=== PATIENT | female | born 1975 | race Caucasian/White ===

== ENCOUNTER 2023-05-20 19:56 | Observation (INO) ==
[2023-05-20 21:58] LABS: Anion Gap 7 (3-11); BUN Creatinine Ratio 15.2 (10-20); Blood Urea Nitrogen 12 mg/dl (6-23); Carbon Dioxide 26 mmol/L (21-32); Chloride 104 mmol/L (98-107); Est GFR (African American) 103.3 ml/min; Est GFR (Non-African American) 89.1 ml/min; Glucose 89 mg/dl (70-99(Fasting)); Potassium 3.5 mmol/L (3.5-5.1); Sodium 137 mmol/L (136-145)
[2023-05-20 22:20] LABS: Hematocrit (blood only) 22.9 % (37.0-47.0); Hemoglobin 6.4 g/dl (12.0-16.0); Mean Corpuscular Hemoglobin 19.8 pg (25.0-34.0); Mean Corpuscular Hgb Conc 27.9 g/dL (32.0-36.0); Mean Corpuscular Volume 70.7 fL (80.0-100.0); Platelet Count 318 K/uL (130-400); RDW Standard Deviation 43.4 fL (36.4-46.3); Red Blood Count 3.24 M/uL (4.20-5.40); White Blood Count 6.39 K/ul (4.8-10.8)
[2023-05-20] MEDS ORDERED: SODIUM CHLORIDE 0.9% 250 ML IV PRN (22:25)
[2023-05-20] MEDS ORDERED: SODIUM CHLORIDE 0.9% 1000ML 1,000 ML IV ONE (22:33)
--- NOTE | 2023-05-20 22:36 | Emergency Department Note ---
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 No history of blo od transfusions in the past. Patient denies chest pain, fevers, bleeding disorders. She states she is healthy. Home Medications Medication Instructions Recorded Confirmed Type sumatriptan succinate 50 mg tablet 50 mg PO UD PRN migraine headache 05/20/23 05/20/23 History Allergies Allergy/AdvReac Type Severity Reaction Status Date / Time No Known Allergies Allergy Verified 05/20/23 15:10 Past Med/Surg History Surgical History History of wisdom tooth extraction Family History Father Prostate cancer Denies family history of Ovarian cancer Myocardial infarction Breast cancer Colorectal cancer Social History Smoking Status: Never smoker Second Hand Exposure: No; Do You Dip or Chew Tobacco: No; Hx Alcohol Use: No Hx Substance Use: No Preferred Language: Spanish Communication Ability: Effective Visual Impairment: No Limitations Hearing Ability: Normal 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 Beliefs That Will Affect Care: None marital status: Current Living Situation: Family current occupational status: employed 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 How many Children do You have: 2 Feels Safe at Home: Yes Safety Concerns: Feels Safe At This Time Childhood Exposure to Second-Hand Smoke: No caffeine: Yes during the past year weight has: increased > 10 lbs Dental Care, Regularly: Yes Physical Activity Frequency: Does not Exercise Seatbelt Use: always Sunscreen Use: Yes Review of Systems A total of 10 systems reviewed and were otherwise negative Physical Exam Vital Signs Vital Signs - 24 hr 05/20/23 20:14 05/20/23 22:40 05/20/23 22:43 Temperature 36.5 C Temperature Source Temporal Artery Scan Pulse Rate 85 93 H Pulse Rate [Apical] 93 H Pulse Rhythm [Apical] Regular Pulse Strength [Apical] Normal Respiratory Rate 18 20 Respiratory Effort / Characteristics Non-Labored Non-Labored Respiratory Depth Normal Normal Respiratory Pattern Regular Blood Pressure 156/92 H Blood Pressure [Left Arm] 164/97 H Blood Pressure Mean 113 Blood Pressure Mean [Left Arm] 119 Blood Pressure Position [Left Arm] Sitting Pulse Oximetry 99 100 Oxygen Delivery Method Room Air Room Air Sepsis Recent Fever Within 48 Hours No Sepsis New/Unexplained Change in Mental Status No Sepsis Action Taken by Nursing No Action Required VITALS: Vitals are noted on the nurse's note and reviewed by myself. Vital signs stable. GENERAL: Pleasant patient, in no acute distress, nondiaphoretic, well-developed well-nourished. SKIN: The skin was without rashes, erythema, edema, or bruising. There is no tenting of the skin. Capillary reflex less than 2 seconds. HEAD: Normocephalic atraumatic. EARS: External auditory canals clear, EYES: Pupils equal round and reactive to light and accommodation. Conjunctivae without injection, sclerae without icterus. Extraocular movements intact. NOSE: Patent, turbinates without inflammation or discharge. MOUTH: Mucous membranes moist. Pharynx without erythema or exudate. Uvula midline. Airway patent. Tongue does not deviate. NECK: Supple without nuchal rigidity. No lymphadenopathy. No thyromegaly. Cervical spine is nontender. No JVD. HEART: Regular rate and rhythm LUNGS: Clear to auscultation bilaterally without wheezes, rales or rhonchi. No retractions or accessory muscle use. ABDOMEN: Positive bowel sounds x 4. Normal tympanic percussion. Soft, nontender, without masses or organomegaly. Powell sign negative. No guarding or rebound tenderness. No CVA tenderness MUSCULOSKELETAL: No muscle atrophy, erythema, or edema noted. NEURO: Patient was alert and oriented to person place and time. Normal sensation to light and sharp touch. No focal neurological deficits. Course Administered Medications Discontinued Medications Sodium Chloride (Nss 1000ml) 1,000 mls @ 999 mls/hr IV .Q1H1M ONE Stop: 05/20/23 23:33 Last Infusion: 05/21/23 00:00 Dose: 0 mls/hr Documented By: Admin: 05/20/23 22:44 Dose: 999 mls/hr Documented By: KIRSTIN Critical Care Time Critical Care Time: Yes Total Critical Care Time: 35 I have personally spent 35 minutes of critical care time in the direct management of this patient. This includes bedside care, interpretation of diagnostic studies, and testing, discussion with consultants, patient, and family members, and other required patient management activities. This 35 minutes is in excess of all separately billable procedures. Medical Decision Making Medical Records Attestation: I reviewed the patient's medical records. Home Medications Current Medication List: was personally reviewed by me Laboratory Data Attestation: I reviewed the patient's lab results. 05/20/23 21:02 05/20/23 21:02 Lab Results 05/20/23 05/20/23 05/20/23 Range/Units 21:02 21:02 21:02 WBC 6.39 (4.8-10.8) K/ul RBC 3.24 L (4.20-5.40) M/uL Hgb 6.4 L* (12.0-16.0) g/dl Hct 22.9 L (37.0-47.0) % MCV 70.7 L (80.0-100.0) fL MCH 19.8 L (25.0-34.0) pg MCHC 27.9 L (32.0-36.0) g/dL RDW Std Deviation 43.4 (36.4-46.3) fL RDW Coeff of Rosario 17.0 H (11.5-14.5) % Plt Count 318 (130-400) K/uL MPV 10.0 (9.4-12.4) fL Sodium 137 (136-145) mmol/L Potassium 3.5 (3.5-5.1) mmol/L Chloride 104 (98-107) mmol/L Carbon Dioxide 26 (21-32) mmol/L Anion Gap 7 (3-11) BUN 12 (6-23) mg/dl Creatinine 0.79 (0.6-1.2) mg/dl Est Cr Clr Drug Dosing Not Reportable Est GFR ( Amer) 103.3 ml/min Est GFR (Non-Af Amer) 89.1 ml/min BUN/Creatinine Ratio 15.2 (10-20) Glucose 89 (70-99(Fasting)) mg/dl Calcium 10.0 (8.6-10.3) mg/dl Magnesium 1.9 (1.7-2.4) mg/dl Troponin I High Sens < 2.3 (0-14) pg/ml HCG, Qual Negative (Negative) Blood Type Blood Type Recheck Antibody Screen Crossmatch 05/20/23 05/20/23 Range/Units 21:03 22:50 WBC (4.8-10.8) K/ul RBC (4.20-5.40) M/uL Hgb (12.0-16.0) g/dl Hct (37.0-47.0) % MCV (80.0-100.0) fL MCH (25.0-34.0) pg MCHC (32.0-36.0) g/dL RDW Std Deviation (36.4-46.3) fL RDW Coeff of Rosario (11.5-14.5) % Plt Count (130-400) K/uL MPV (9.4-12.4) fL Sodium (136-145) mmol/L Potassium (3.5-5.1) mmol/L Chloride (98-107) mmol/L Carbon Dioxide (21-32) mmol/L Anion Gap (3-11) BUN (6-23) mg/dl Creatinine (0.6-1.2) mg/dl Est Cr Clr Drug Dosing Est GFR ( Amer) ml/min Est GFR (Non-Af Amer) ml/min BUN/Creatinine Ratio (10-20) Glucose (70-99(Fasting)) mg/dl Calcium (8.6-10.3) mg/dl Magnesium (1.7-2.4) mg/dl Troponin I High Sens (0-14) pg/ml HCG, Qual (Negative) Blood Type O Positive Blood Type Recheck O Positive Antibody Screen NEGATIVE Crossmatch See Detail Imaging Data Attestation: I personally reviewed and interpreted this imaging study as follows: Radiologist's Impression: Pelvis Ultrasound 05/20/23 22:56 Exam(s): US PELVIS EXAM: US Pelvis Transabdominal, Complete CLINICAL HISTORY: Reason for exam: heavy vaginal bleeding causing anemia. TECHNIQUE: Real-time complete transabdominal pelvic ultrasound with image documentation. COMPARISON: None. FINDINGS: Uterus/cervix: There are 2 hypoechoic lesions identified within the uterus one located posterior to the level of the fundus measuring 2.7 x 2. 7 x 3.0 cm and second surrounding the left uterine myometrium measuring 3. 1 x 1.4 x 1.2 cm. The endometrium measures 8.6 mm . The uterus measures 9.3 x 4.6 x 5.3 cm . Nonspecific nabothian cyst. Right ovary: The right ovary measures 4.2 x 3.6 x 3.6 cm. Round anechoic structure within the right ovary measuring 4.5 x 3.7 x 3.7 cm. Normal blood flow. Left ovary: The left ovary measures 2.4 x 1.0 x 2.7 cm. Within the left ovary there is an ovoid anechoic structure consistent with a simple cyst measuring 2.5 x 0.9 x 2.6 cm. Normal blood flow. Free fluid: No free fluid. Bladder: Unremarkable as visualized. Wall is normal thickness for degree of distention. IMPRESSION: 1. Uterine fibroids, largest averaging approximately 3.1 cm pain 2. Bilateral nonspecific ovarian simple cysts as described, remainder of the pelvis ultrasound unremarkable. Electronically signed by: Rachel Damon MD 05/21/23 02:41 AM MDM Narrative Prior records/ancillary studies reviewed and summarized above. Nursing notes reviewed. Additional history obtained from family. The patient's history was concerning for fatigue. Differential diagnosis: Etiologies such as metabolic, infection, hypo/hyperglycemia, electrolyte abnormalities, cardiac sources, intracerebral event, toxicologic, neurologic, as well as others were entertained. Physical examination: As above. ER treatment provided: IV Lock An order was placed for continuous cardiac monitoring. The monitor shows a rate of 60-100 with a sinus rhythm per my interpretation. IV fluids and patient was typed and crossmatched for 2 units. She was consented. On reassessment the patient felt better. Diagnostics interpretation by me: ECG: Ordered for weakness EKG: Normal sinus, normal intervals, T wave inversion lead III, impression normal sinus rhythm independently interpreted by myself I think arrhythmia is unlikely. EKG shows normal sinus rhythm with no interval abnormalities such as QT prolongation or WPW. There are no findings to suggest Brugada syndrome. Cardiac monitoring in the emergency department reveals no tachycardic or bradycardic dysrhythmia. Hypertrophic cardiomyopathy was considered but there are no clear historical elements pointing toward this. EKG is not suggestive. The QRS voltage is not extremely large and there are no suggestive Q waves. The labs Independently Interpreted by myself revealed severe anemia, euthyroid Imaging studies: Pelvis ultrasound shows fibroids per my independent interpretation. Report was reviewed as above. Consultation: A consultation was placed with the hospitalist. The case was discussed and diagnostics were reviewed. The patient was evaluated in the ER for further treatment. Exam and history seem consistent with severe anemia which is new. Patient was typed and crossmatched for 2 units. She was consented. Labs and diagnostics were independent interpreted by myself. Medicine was consulted and case was discussed. She will be admitted to the medical team for further evaluation and treatment. Patient is agreeable. By the evaluation outlined above emergent etiologies such as infection, electrolyte abnormalities, cardiac sources, intracerebral event, toxologic, neurologic, abnormalities blood glucose, metabolic, as well as others were deemed relatively unlikely. The pt informed about the findings as listed above. All questions were answered and pleased with the treatment. The chart was completed utilizing [employer] Speech voice recognition software. Grammatical errors, random word insertions, pronoun errors, and incomplete sentences are an occassional consequence of this system due to software l imitations, ambient noise, and hardware issues. Any formal questions or concerns about the content, text, or information contained within the body of this dictation should be directly addressed to the physician collections assistant for clarification. Impression & Plan Symptomatic anemia Discharge Plan Visit Data Chief Complaint: Abnormal Labs/Diagnostic Testing Stated Complaint: ABNORMAL LABS ED Provider: Marielos Lara ED Midlevel Provider: Allyson Torres Discharge Problem: Symptomatic anemia Patient Disposition: Admitted As Inpatient Condition: Good Discharge Instructions Interventions: ED Discharge Assessment Last Done: 05/21/23 01:25
[2023-05-20 23:05] LABS: Magnesium 1.9 mg/dl (1.7-2.4)
[2023-05-20 23:07] LABS: Pregnancy Test, Serum Negative (Negative)
[2023-05-20 23:14] LABS: Troponin I High Sensitivity < 2.3 pg/ml (0-14)
--- NOTE | 2023-05-20 23:35 | History & Physical Report ---
Date of Service May 20, 2023 Assessment & Plan (1) Symptomatic anemia: Plan: Patient is a 48-year-old female with past medical history of migraines who presents to the hospital for evaluation of dizziness. Patient was referred by her PCP when she found a hemoglobin of 6.7 on work-up for lightheadedness/dizziness. Patient is status post bolus of normal saline and is hemodynamically stable. -Admit to [facility] -Anemia secondary to chronic vaginal bleeding causing iron deficient anemia -Type and screen with transfusing 2 units of blood -Check H&H after transfusion and CBC in the morning to check for stability -Avoid NSAIDs -Tylenol for pain -Transfusion threshold of 7 or less. (2) Vaginal bleeding: Plan: -Ongoing since January -hCG negative -Transvaginal ultrasound ordered and pending -Consult gynecology, appreciate recommendations -May be secondary to perimenopause given family history of similar symptoms in mother -Other differential includes polyps, uterine tumor, endometrial hyperplasia (3) Headache, migraine: Plan: -Continue sumatriptan as needed for migraines (4) Left malleolar fracture: Plan: -Pain control with Tylenol -Keep ankle in boot Plan Disposition: Admit to [facility] for blood transfusion Diet: Regular DVT prophylaxis: Low risk, chemoprophylaxis contraindicated given active bleeding and anemia CODE STATUS: Full code History of Present Illness Chief Complaint: dizziness Primary Care Provider: Ceferino Lares DO Patient is a 48-year-old female with past medical history of migraines who presents to the hospital for evaluation of dizziness. Patient was referred by her PCP when she found a hemoglobin of 6.7 on work-up for lightheadedness/dizziness. Per the patient's history, she has been dealing with heavy menstrual bleeding since January. She is perimenopausal and reports that her mother went through the same thing around this age. It seems to be worse back in January into February where she was going through 1-2 tampons a day while she was working, however, the majority of the blood that was being expelled were big clots without much active bleeding. This has been consistent up until the end of February then she had a 20-day break where she had no vaginal bleeding. In the end of March it picked back up and since school was out, she switched to pads utilizing 1 a day and again was experiencing just big clots when replacing the pad. Of note, patient recently fractured her ankle and is in a boot. She has been taking ibuprofen routinely for pain control since it happened on 05/14/2023. Patient otherwise does not take any blood thinners or aspirin. Patient is up-to-date on Pap smear having 1 last year and it was normal. Denies abdominal pain. Eating and drinking without difficulty. Her symptoms currently include dizziness with standing, fast heart rate, and fatigue. Normal BMs. Denies hematuria or dysuria. No other complaints at this time. No family history of uterine or breast cancer. Father had prostate cancer. ED course: Patient evaluated by ED provider. Labs are significant for a hemogl obin of 6.4 with an MCV of 70.7. BMP within normal limits. Transvaginal ultrasound ordered and is pending at the time of writing this note. Patient was given a 1 L bolus of normal saline and was typed and screened and will be given 2 units of blood. Hospitalist service was consulted for admission to the hospital. Allergies Allergy/AdvReac Type Severity Reaction Status Date / Time No Known Allergies Allergy Verified 05/20/23 15:10 Home Medications Medication Instructions Recorded Confirmed Type sumatriptan succinate 50 mg tablet 50 mg PO UD PRN migraine headache 05/20/23 05/20/23 History Past Med/Surg History Medical History (Updated 05/21/23 @ 05:17 by Dorita Pappas MD) Headache, migraine Surgical History History of wisdom tooth extraction Family History Father Prostate cancer Denies family history of Ovarian cancer Myocardial infarction Breast cancer Colorectal cancer Social History Smoking Status: Never smoker Second Hand Exposure: No; Do You Dip or Chew Tobacco: No; Hx Alcohol Use: No Hx Substance Use: No Preferred Language: Yi Communication Ability: Effective Visual Impairment: No Limitations Hearing Ability: Normal Nuclear Weapons Specialist Required: No Beliefs That Will Affect Care: None marital status: Current Living Situation: Family current occupational status: employed 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 How many Children do You have: 2 Feels Safe at Home: Yes Safety Concerns: Feels Safe At This Time Childhood Exposure to Second-Hand Smoke: No caffeine: Yes during the past year weight has: increased > 10 lbs Dental Care, Regularly: Yes Physical Activity Frequency: Does not Exercise Seatbelt Use: always Sunscreen Use: Yes Review of Systems Review of Systems: All systems reviewed & are unremarkable except as noted in HPI & below Physical Exam Constitutional: WD/WN, vitals as above Eyes: + anicteric sclerae Neck: trachea midline, no thyromegaly Respiratory: normal respiratory effort, lungs clear to auscultation Cardiovascular: RRR, no murmur, no edema Gastrointestinal (Abdomen): normal bowel sounds, soft, nontender, no hepatos plenomegaly Musculoskeletal: Head/Neck/Chest: normocephalic and head atraumatic Patient's left foot is in a boot. Skin: no rashes, warm and dry Neurologic: moves all extremities Psychiatric: Orientation: alert, oriented x 3 and cooperative Affect: + anxious affect Results & Data Results & Data Vital Signs (Past 12 Hours) Vital Signs Temp Pulse Pulse Resp BP BP Pulse Ox 05/20/23 22:43 93 H 05/20/23 22:40 93 H 20 164/97 H 100 05/20/23 20:14 36.5 C 85 18 156/92 H 99 O2 Del Method 05/20/23 22:43 05/20/23 22:40 Room Air 05/20/23 20:14 Room Air Laboratory Results CBC, BMP reviewed Diagnostic Findings Pelvis Ultrasound 05/20/23 22:56 Exam(s): US PELVIS EXAM: US Pelvis Transabdominal, Complete CLINICAL HISTORY: Reason for exam: heavy vaginal bleeding causing anemia. TECHNIQUE: Real-time complete transabdominal pelvic ultrasound with image documentation. COMPARISON: None. FINDINGS: Uterus/cervix: There are 2 hypoechoic lesions identified within the uterus one located posterior to the level of the fundus measuring 2.7 x 2. 7 x 3.0 cm and second surrounding the left uterine myometrium measuring 3. 1 x 1.4 x 1.2 cm. The endometrium measures 8.6 mm . The uterus measures 9.3 x 4.6 x 5.3 cm . Nonspecific nabothian cyst. Right ovary: The right ovary measures 4.2 x 3.6 x 3.6 cm. Round anechoic structure within the right ovary measuring 4.5 x 3.7 x 3.7 cm. Normal blood flow. Left ovary: The left ovary measures 2.4 x 1.0 x 2.7 cm. Within the left ovary there is an ovoid anechoic structure consistent with a simple cyst measuring 2.5 x 0.9 x 2.6 cm. Normal blood flow. Free fluid: No free fluid. Bladder: Unremarkable as visualized. Wall is normal thickness for degree of distention. IMPRESSION: 1. Uterine fibroids, largest averaging approximately 3.1 cm pain 2. Bilateral nonspecific ovarian simple cysts as described, remainder of the pelvis ultrasound unremarkable. Electronically signed by: Rachel Damon MD 05/21/23 02:41 AM ECG Additional Comments: ECG with normal sinus rhythm, normal rate, no ischemic changes Code Status & VTE Plan VTE Prophylaxis Plan VTE Prophylaxis will be ordered: Yes Supervising Physician Co-Signing Physician Notes I personally examined the patient and verified all paulino points of history and exam, discussed case, and agree with decision making with Dr. Rivera with the following additions/exceptions: This patient is a 48-year-old female with history of migraines and menorrhagia for the last several months who presented with fatigue and lightheadedness. She was found to have a hemoglobin of 6.7 on outpatient labs drawn by her PCP. She denies bleeding from anywhere else such as the stool or the urine. History and ROS otherwise reviewed as above Vitals reviewed Gen: AAOx3, NAD HEENT: Anicteric sclerae, EOMI CV: RRR no mgr nl S1S2 Pulm: CTAB no wcr Abd: +BS soft NT ND no masses or hernias Ext: No edema, left ankle in Alexander wrap Skin: No rashes, warm/dry Neuro: Full strength throughout CBC, BMP reviewed 48-year-old female here with menorrhagia and severe symptomatic anemia likely from chronic vaginal bleeding over the last 3 to 4 months. MCV quite low indicating chronic bleed and iron deficiency. Transfused 2 units PRBCs -Consult gynecology -Vaginal ultrasound shows fibroids and ovarian cysts-likely cause of her bleeding as fibroids but will likely need an endometrial biopsy followed by management of bleeding with either IUD or ablation Can likely be discharged to home on 05/21 after transfusion complete and seen in consultation by gynecology
[2023-05-21] MEDS ORDERED: ACETAMINOPHEN 325 MG TAB PO PRN (01:49)
[2023-05-21] MEDS ORDERED: POLYETHYLENE (MIRALAX) 17 GM PACK PO PRN (01:49)
[2023-05-21] MEDS ORDERED: SUMAtriptan succinate 50 MG TAB PO PRN (01:49)
--- NOTE | 2023-05-21 02:41 | Ultrasound Report ---
Exam(s): US PELVIS EXAM: US Pelvis Transabdominal, Complete CLINICAL HISTORY: Reason for exam: heavy vaginal bleeding causing anemia. TECHNIQUE: Real-time complete transabdominal pelvic ultrasound with image documentation. COMPARISON: None. FINDINGS: Uterus/cervix: There are 2 hypoechoic lesions identified within the uterus one located posterior to the level of the fundus measuring 2.7 x 2. 7 x 3.0 cm and second surrounding the left uterine myometrium measuring 3. 1 x 1.4 x 1.2 cm. The endometrium measures 8.6 mm . The uterus measures 9.3 x 4.6 x 5.3 cm . Nonspecific nabothian cyst. Right ovary: The right ovary measures 4.2 x 3.6 x 3.6 cm. Round anechoic structure within the right ovary measuring 4.5 x 3.7 x 3.7 cm. Normal blood flow. Left ovary: The left ovary measures 2.4 x 1.0 x 2.7 cm. Within the left ovary there is an ovoid anechoic structure consistent with a simple cyst measuring 2.5 x 0.9 x 2.6 cm. Normal blood flow. Free fluid: No free fluid. Bladder: Unremarkable as visualized. Wall is normal thickness for degree of distention. IMPRESSION: 1. Uterine fibroids, largest averaging approximately 3.1 cm pain 2. Bilateral nonspecific ovarian simple cysts as described, remainder of the pelvis ultrasound unremarkable. Electronically signed by: Rachel Damon MD 05/21/23 02:41 AM
--- NOTE | 2023-05-21 05:23 | Billing Data ---
Date of Service May 20, 2023 Coding Level of Care Code 53496 INT INP/OBS CARE
--- NOTE | 2023-05-21 07:43 | Consultation ---
Date of Consultation May 21, 2023 Assessment & Plan (1) Vaginal bleeding: (2) Symptomatic anemia: (3) Perimenopause: Plan The course was reviewed with the patient. Ultrasound reviewed. I do not believe that the small fibroids are the primary cause of her bleeding. Endometrium 8mm. Bilateral unilocular, anechoic, cystic lesions noted--she is asymptomatic from these. Suspect that the patient is having DUB from perimenopause. Would plan an aygestin taper at present--4 tabs a day for four days, three tabs a day for three days, two tabs a day for two days and then one tab daily until gone. Her bleeding should significantly slow/stop with this. The she will have a withdraw bleed after stopping this. She will call the office on day one of this bleed for an ultrasound and evaluation for endometrial biopsy with me. Then , after ruling out hyperplasia/cancer, which is unlikely, will need to do some type of therapy to prevent this from recurring. Would transfuse to hgb or >8. Options for treatment briefly reviewed with the patient--cyclic progestin, depo, nexplanon, progestin iud, ablation. She is not a candidate for estrogen.The r/b/se were briefly reviewed and will again review when I see her in the office. Bleeding precautions were reviewed with the patient. She was given our office number and my name. Questions asked and answered to the best of my ability. History of Present Illness Requesting Physician: Dr. Rivera Reason for Consultation: vaginal bleeding and anemia Attending Physician: Dorita Pappas MD History of Present Illness Patient is a 48yowf, who presents to the hospital with symptomatic anemia. Patient notes that she had regular, monthly menses, lasting for 6-7 days with a few days of heavy flow regularly up until January. then since January, she has had DUB. She notes that the bleeding in January was heavy with clots some days, some days spotting for 6 weeks. Stopped for 2d and then returned similarly for 4 weeks. [place] then stopped on [place] 28. Stopped for about twenty days and resumed. Wednesday she was in the shower and passed a fist size clot. She has had minimal bleeding since then. She was waiting to discuss with her pcp at her regularly scheduled appt. She went to the pcp yesterday and checked hgb and was 6.4. Was referred to the ED for transfusion. Patient notes she has felt fatigued for some time. she started to have lightheadedness and fatigue in Mid March. When she was at the beach she could hardly do anything without needing to stop and rest. She has had two pregnancies and two vaginal deliveries, no complications. [employer] care with pcp and has always been normal, no abnl paps. Patient has a hx of migraines and had tried to use ocps in the past but made her migraines worse. Her has a vasectomy. This is the first time she has ever had bleeding like this. She remembers her mother having similar issues. No hx of stds, no dyspareunia. Patient denies having significant pain with this bleeding. US.--CLINICAL HISTORY: Reason for exam: heavy vaginal bleeding causing anemia. TECHNIQUE: Real-time complete transabdominal pelvic ultrasound with image documentation. COMPARISON: None. FINDINGS: Uterus/cervix: There are 2 hypoechoic lesions identified within the uterus one located posterior to the level of the fundus measuring 2.7 x 2. 7 x 3.0 cm and second surrounding the left uterine myometrium measuring 3. 1 x 1.4 x 1.2 cm. The endometrium measures 8.6 mm . The uterus measures 9.3 x 4.6 x 5.3 cm . Nonspecific nabothian cyst. Right ovary: The right ovary measures 4.2 x 3.6 x 3.6 cm. Round anechoic structure within the right ovary measuring 4.5 x 3.7 x 3.7 cm. Normal blood flow. Left ovary: The left ovary measures 2.4 x 1.0 x 2.7 cm. Within the left ovary there is an ovoid anechoic structure consistent with a simple cyst measuring 2.5 x 0.9 x 2.6 cm. Normal blood flow. Free fluid: No free fluid. Bladder: Unremarkable as visualized. Wall is normal thickness for degree of distention. IMPRESSION: 1. Uterine fibroids, largest averaging approximately 3.1 cm pain 2. Bilateral nonspecific ovarian simple cysts as described, remainder of the pelvis ultrasound unremarkable Allergies Allergy/AdvReac Type Severity Reaction Status Date / Time No Known Allergies Allergy Verified 05/20/23 15:10 Home Medications Medication Instructions Recorded Confirmed Type sumatriptan succinate 50 mg tablet 50 mg PO UD PRN migraine headache 05/20/23 05/20/23 History Patient History Medical History (Updated 05/21/23 @ 07:44 by Amy Leal MD, FACOG) Headache, migraine Left malleolar fracture Surgical History History of wisdom tooth extraction Family History Father Prostate cancer Denies family history of Ovarian cancer Myocardial infarction Breast cancer Colorectal cancer Social History Smoking Status: Never smoker Second Hand Exposure: No; Do You Dip or Chew Tobacco: No; Hx Alcohol Use: No Hx Substance Use: No Preferred Language: Gibraltarian Communication Ability: Effective Visual Impairment: No Limitations Hearing Ability: Normal Sales Training Manager Required: No Beliefs That Will Affect Care: None marital status: Current Living Situation: Family current occupational status: employed 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 How many Children do You have: 2 Feels Safe at Home: Yes Safety Concerns: Feels Safe At This Time Childhood Exposure to Second-Hand Smoke: No caffeine: Yes during the past year weight has: increased > 10 lbs Dental Care, Regularly: Yes Physical Activity Frequency: Does not Exercise Seatbelt Use: always Sunscreen Use: Yes Physical Exam Constitutional: WD/WN, vitals as above Psychiatric: A+Ox3, euthymic affect Results & Data Vital Signs (Past 12 Hours) Vital Signs Temp Pulse Pulse Pulse Resp BP BP 05/21/23 06:00 37.1 C 77 16 132/82 05/21/23 06:16 36.9 C 74 18 125/82 05/21/23 06:00 37 C 74 18 120/82 05/21/23 06:00 37.0 C 74 18 120/82 05/21/23 05:42 37.2 C 71 19 121/83 05/21/23 05:23 36.8 C 80 18 128/84 05/21/23 04:25 37.1 C 73 18 131/83 05/21/23 03:25 36.8 C 79 16 153/87 H 05/21/23 02:54 37 C 92 H 16 139/81 05/21/23 02:35 37.2 C 81 18 135/82 05/21/23 02:13 36.9 C 79 18 116/75 05/21/23 01:40 37.2 C 92 H 16 158/76 H 05/21/23 01:00 86 20 117/66 05/21/23 00:00 05/20/23 22:43 93 H 05/20/23 22:40 93 H 20 164/97 H 05/20/23 20:14 36.5 C 85 18 156/92 H Pulse Ox O2 Del Method 05/21/23 06:00 98 05/21/23 06:16 99 05/21/23 06:00 99 05/21/23 06:00 99 05/21/23 05:42 99 05/21/23 05:23 94 05/21/23 04:25 97 05/21/23 03:25 99 05/21/23 02:54 100 05/21/23 02:35 98 05/21/23 02:13 99 05/21/23 01:40 100 Room Air 05/21/23 01:00 97 Room Air 05/21/23 00:00 Room Air 05/20/23 22:43 05/20/23 22:40 100 Room Air 05/20/23 20:14 99 Room Air PG Care Time/CCT Total # of Minutes Spent Total Time Spent with Patient: Total time spent is greater than 50% in coordination of care (as documented) at patient's floor/unit and/or counseling patient: Coding Level of Care Code 21986 IN/OBS CONSULT LVL 3,45M Diagnoses Vaginal bleeding N93.9 Symptomatic anemia D64.9 Perimenopause N95.1
--- NOTE | 2023-05-21 07:57 | Hospitalist Progress Note ---
Date of Service May 21, 2023 Assessment & Plan (1) Symptomatic anemia: Plan: Patient is a 48-year-old female with past medical history of migraines who presents to the hospital for evaluation of dizziness. Patient was referred by her PCP when she found a hemoglobin of 6.7 on work-up for lightheadedness/dizziness. Patient is status post bolus of normal saline and is hemodynamically stable. -Admit to [facility] [place] -Anemia secondary to chronic vaginal bleeding causing iron deficient anemia -Type and screen with transfusing 2 units of blood -Check H&H after transfusion and CBC in the morning to check for stability -Avoid NSAIDs -Tylenol for pain -Transfusion threshold of 7 or less. (2) Vaginal bleeding: Plan: -Ongoing since January -hCG negative -Transvaginal ultrasound ordered and pending -Consult gynecology, appreciate recommendations -May be secondary to perimenopause given family history of similar symptoms in mother -Other differential includes polyps, uterine tumor, endometrial hyperplasia (3) Headache, migraine: Plan: -Continue sumatriptan as needed for migraines (4) Left malleolar fracture: Plan: -Pain control with Tylenol -Keep ankle in boot (5) Acute blood loss anemia: Plan: appearing acute on chronic in nature prbc as above/hog feeder consult monitoring repeat cbc following blood transfusion Plan Disposition: Admit to [facility] [place] for blood transfusion Diet: Regular DVT prophylaxis: Low risk, chemoprophylaxis contraindicated given active bleeding and anemia CODE STATUS: Full code Admission and Anticipated Discharge Date Admission Date: May 20, 2023 Results & Data Results & Data Vital Signs (Past 12 Hours) Vital Signs Temp Pulse Pulse Pulse Resp BP BP 05/21/23 07:45 36.8 C 76 18 130/83 05/21/23 06:00 37.1 C 77 16 132/82 05/21/23 06:16 36.9 C 74 18 125/82 05/21/23 06:00 37 C 74 18 120/82 05/21/23 06:00 37.0 C 74 18 120/82 05/21/23 05:42 37.2 C 71 19 121/83 05/21/23 05:23 36.8 C 80 18 128/84 05/21/23 04:25 37.1 C 73 18 131/83 05/21/23 03:25 36.8 C 79 16 153/87 H 05/21/23 02:54 37 C 92 H 16 139/81 05/21/23 02:35 37.2 C 81 18 135/82 05/21/23 02:13 36.9 C 79 18 116/75 05/21/23 01:40 37.2 C 92 H 16 158/76 H 05/21/23 01:00 86 20 117/66 05/21/23 00:00 05/20/23 22:43 93 H 05/20/23 22:40 93 H 20 164/97 H 05/20/23 20:14 36.5 C 85 18 156/92 H Pulse Ox O2 Del Method 05/21/23 07:45 98 05/21/23 06:00 98 05/21/23 06:16 99 05/21/23 06:00 99 05/21/23 06:00 99 05/21/23 05:42 99 05/21/23 05:23 94 05/21/23 04:25 97 05/21/23 03:25 99 05/21/23 02:54 100 05/21/23 02:35 98 05/21/23 02:13 99 05/21/23 01:40 100 Room Air 05/21/23 01:00 97 Room Air 05/21/23 00:00 Room Air 05/20/23 22:43 05/20/23 22:40 100 Room Air 05/20/23 20:14 99 Room Air Laboratory Results 05/20/23 05/20/23 05/20/23 Range/Units 22:50 21:03 21:02 WBC (4.8-10.8) K/ul RBC (4.20-5.40) M/uL Hgb (12.0-16.0) g/dl Hct (37.0-47.0) % MCV (80.0-100.0) fL MCH (25.0-34.0) pg MCHC (32.0-36.0) g/dL RDW Std Deviation (36.4-46.3) fL RDW Coeff of Rosario (11.5-14.5) % Plt Count (130-400) K/uL MPV (9.4-12.4) fL Sodium (136-145) mmol/L Potassium (3.5-5.1) mmol/L Chloride (98-107) mmol/L Carbon Dioxide (21-32) mmol/L Anion Gap (3-11) BUN (6-23) mg/dl Creatinine (0.6-1.2) mg/dl Est Cr Clr Drug Dosing Est GFR ( Amer) ml/min Est GFR (Non-Af Amer) ml/min BUN/Creatinine Ratio (10-20) Glucose (70-99(Fasting)) mg/dl Calcium (8.6-10.3) mg/dl Magnesium (1.7-2.4) mg/dl Troponin I High Sens (0-14) pg/ml HCG, Qual Negative (Negative) Blood Type O Positive Blood Type Recheck O Positive Antibody Screen NEGATIVE Crossmatch See Detail 05/20/23 05/20/23 Range/Units 21:02 21:02 WBC 6.39 (4.8-10.8) K/ul RBC 3.24 L (4.20-5.40) M/uL Hgb 6.4 L* (12.0-16.0) g/dl Hct 22.9 L (37.0-47.0) % MCV 70.7 L (80.0-100.0) fL MCH 19.8 L (25.0-34.0) pg MCHC 27.9 L (32.0-36.0) g/dL RDW Std Deviation 43.4 (36.4-46.3) fL RDW Coeff of Rosario 17.0 H (11.5-14.5) % Plt Count 318 (130-400) K/uL MPV 10.0 (9.4-12.4) fL Sodium 137 (136-145) mmol/L Potassium 3.5 (3.5-5.1) mmol/L Chloride 104 (98-107) mmol/L Carbon Dioxide 26 (21-32) mmol/L Anion Gap 7 (3-11) BUN 12 (6-23) mg/dl Creatinine 0.79 (0.6-1.2) mg/dl Est Cr Clr Drug Dosing Not Reportable Est GFR ( Amer) 103.3 ml/min Est GFR (Non-Af Amer) 89.1 ml/min BUN/Creatinine Ratio 15.2 (10-20) Glucose 89 (70-99(Fasting)) mg/dl Calcium 10.0 (8.6-10.3) mg/dl Magnesium 1.9 (1.7-2.4) mg/dl Troponin I High Sens < 2.3 (0-14) pg/ml HCG, Qual (Negative) Blood Type Blood Type Recheck Antibody Screen Crossmatch PG Care Time/CCT Total # of Minutes Spent Total Time Spent with Patient: Total time spent is greater than 50% in coordination of care (as documented) at patient's floor/unit and/or counseling patient: Coding Diagnoses Symptomatic anemia D64.9 Vaginal bleeding N93.9 Headache, migraine G43.909 Left malleolar fracture S82.892A Acute blood loss anemia D62
[2023-05-21] MEDS: NORETHINDRONE 5 MG TAB PO SCH ×2 (09:27→12:41)
[2023-05-21 09:58] LABS: BUN Creatinine Ratio 14.9 (10-20); Calcium 9.4 mg/dl (8.6-10.3); Creatinine Clr Calc Pharmacy 97.3 ml/min; Est GFR (African American) 111.8 ml/min; Est GFR (Non-African American) 96.5 ml/min; Potassium 3.6 mmol/L (3.5-5.1)
[2023-05-21 10:25] LABS: Ferritin 3.9 ng/ml (8-388)
[2023-05-21 10:29] LABS: Hematocrit (blood only) 27.4 % (37.0-47.0); Hemoglobin 8.4 g/dl (12.0-16.0); Mean Corpuscular Hemoglobin 22.3 pg (25.0-34.0); Mean Corpuscular Hgb Conc 30.7 g/dL (32.0-36.0); Mean Corpuscular Volume 72.9 fL (80.0-100.0); Mean Platelet Volume 9.9 fL (9.4-12.4); Platelet Count 291 K/uL (130-400); RDW Coefficient of Variation 17.8 % (11.5-14.5); Red Blood Count 3.76 M/uL (4.20-5.40); White Blood Count 5.82 K/ul (4.8-10.8)
--- NOTE | 2023-05-21 10:34 | Electrocardiogram Report ---
Test Reason : Blood Pressure : / mmHG Vent. Rate : 079 BPM Atrial Rate : 079 BPM P-R Int : 144 ms QRS Dur : 078 ms QT Int : 378 ms P-R-T Axes : 012 -14 006 degrees QTc Int : 433 ms Normal sinus rhythm Minimal voltage criteria for LVH, may be normal variant ( R in aVL ) Borderline ECG No previous ECGs available Confirmed by Gavin Fiore ([id number]) on 05/21/2023 10:34:07 AM Referred By: Ceferino Lares Confirmed By:Gavin Fiore
--- NOTE | 2023-05-21 10:50 | Discharge Summary ---
Date of Service May 21, 2023 Admission HPI Per Admitting Provider Patient is a 48-year-old female with past medical history of migraines who presents to the hospital for evaluation of dizziness. Patient was referred by her PCP when she found a hemoglobin of 6.7 on work-up for lighthea dedness/dizziness. Per the patient's history, she has been dealing with heavy menstrual bleeding since January. She is perimenopausal and reports that her mother went through the same thing around this age. It seems to be worse back in January into February where she was going through 1-2 tampons a day while she was working, however, the majority of the blood that was being expelled were big clots without much active bleeding. This has been consistent up until the end of February then she had a 20-day break where she had no vaginal bleeding. In the end of March it picked back up and since school was out, she switched to pads utilizing 1 a day and again was experiencing just big clots when replacing the pad. Of note, patient recently fractured her ankle and is in a boot. She has been taking ibuprofen routinely for pain control since it happened on 05/14/2023. Patient otherwise does not take any blood thinners or aspirin. Patient is up-to-date on Pap smear having 1 last year and it was normal. Denies abdominal pain. Eating and drinking without difficulty. Her symptoms currently include dizziness with standing, fast heart rate, and fatigue. Normal BMs. Denies hematuria or dysuria. No other complaints at this time. No family history of uterine or breast cancer. Father had prostate cancer. ED course: Patient evaluated by ED provider. Labs are significant for a hemoglobin of 6.4 with an MCV of 70.7. BMP within normal limits. Transvaginal ultrasound ordered and is pending at the time of writing this note. Patient was given a 1 L bolus of normal saline and was typed and screened and will be given 2 units of blood. Hospitalist service was consulted for admission to the hospital. Admission Exam Per Admitting Provider Constitutional: WD/WN, vitals as above Eyes: + anicteric sclerae Neck: trachea midline, no thyromegaly Respiratory: normal respiratory effort, lungs clear to auscultation Cardiovascular: RRR, no murmur, no edema Gastrointestinal (Abdomen): normal bowel sounds, soft, nontender, no hepatosplenomegaly Musculoskeletal: Head/Neck/Chest: normocephalic and head atraumatic Patient's left foot is in a boot. Skin: no rashes, warm and dry Neurologic: moves all extremities Psychiatric: Orientation: alert, oriented x 3 and cooperative Affect: + anxious affect Principal Diagnosis Symptomatic Anemia, Dysfunctional Uterine Bleeding Discharge Exam Constitutional WD/WN, vitals as above general pallor (reported improved) Eyes + anicteric sclerae Neck trachea midline, no thyromegaly Respiratory normal respiratory effort, lungs clear to auscultation Cardiovascular RRR, no murmur, no edema Gastrointestinal (Abdomen) normal bowel sounds, soft, nontender, no hepatosplenomegaly Musculoskeletal Head/Neck/Chest: normocephalic and head atraumatic Skin no rashes, warm and dry Neurologic moves all extremities Psychiatric A+Ox3, euthymic affect Discharge Data Allergies Allergy/AdvReac Type Severity Reaction Status Date / Time No Known Allergies Allergy Verified 05/20/23 15:10 Consultations 05/20/23 22:33 ED Decision to Admit Stat 05/20/23 23:13 Consult Gynecology Routine Ordered Studies Pelvis Ultrasound 05/20/23 22:56 Exam(s): US PELVIS EXAM: US Pelvis Transabdominal, Complete CLINICAL HISTORY: Reason for exam: heavy vaginal bleeding causing anemia. TECHNIQUE: Real-time complete transabdominal pelvic ultrasound with image documentation. COMPARISON: None. FINDINGS: Uterus/cervix: There are 2 hypoechoic lesions identified within the uterus one located posterior to the level of the fundus measuring 2.7 x 2. 7 x 3.0 cm and second surrounding the left uterine myometrium measuring 3. 1 x 1.4 x 1.2 cm. The endometrium measures 8.6 mm . The uterus measures 9.3 x 4.6 x 5.3 cm . Nonspecific nabothian cyst. Right ovary: The right ovary measures 4.2 x 3.6 x 3.6 cm. Round anechoic structure within the right ovary measuring 4.5 x 3.7 x 3.7 cm. Normal blood flow. Left ovary: The left ovary measures 2.4 x 1.0 x 2.7 cm. Within the left ovary there is an ovoid anechoic structure consistent with a simple cyst measuring 2.5 x 0.9 x 2.6 cm. Normal blood flow. Free fluid: No free fluid. Bladder: Unremarkable as visualized. Wall is normal thickness for degree of distention. IMPRESSION: 1. Uterine fibroids, largest averaging approximately 3.1 cm pain 2. Bilateral nonspecific ovarian simple cysts as described, remainder of the pelvis ultrasound unremarkable. Electronically signed by: Rachel Damon MD 05/21/23 02:41 AM Hospital Course (1) Symptomatic anemia: Patient is a 48-year-old female with past medical history of migraines who presented to hospital for evaluation of dizziness in the setting of ongoing vaginal bleeding, denied bleeding in stool/urine. s/p IVF bolus NSS on admission Hgb 6.4 on arrival, 2u PRBC provided. NSAIDs avoided Repeat hgb improved to 8.4 Consultation w/ MANAGER READING Dr Leal while inpatient. Prior REHAB DIRECTOR screenings negative US Pelvis obtained, showing 8mm endometrium, bilateral unilocular, anechoic, cystic lesions noted--she is asymptomatic from these. Suspected pt having DUB from perimenopause Started Aygestin taper while inpatient, no further bleeding reported To complete taper as follows at discharge:4 tabs a day for four days, three tabs a day for three days, two tabs a day for two days and then one tab daily until gone. Her bleeding should significantly slow/stop with this. The she will have a withdraw bleed after stopping this. She should call the office on day one of this bleed for an ultrasound and evaluation for endometrial biopsy with REHAB DIRECTOR and then after ruling out hyperplasia/cancer, which is unlikely, will need to do some type of therapy to prevent this from recurring. Review CBC w/ MCV <80 into the 70s. Patient reported sensation of reporting to need to chew on ice, likely from LIZZIE. Call to lab to add iron studies to labs on admission which showed iron 51, but unsaturated IBC elevation to 397, trans % sat 11 and LOW ferritin to 3.9 (reports RLS) Discussed with patient and ordered dose of venofer as well prior to discharge and PO ferrous sulfate daily at dc and possible venofer w/ PCP in follow up if MCV remains low. Discussed constipation risk/etc, OTC bowel regimen if needed vs Q2D dosing. Denies issues w/ constipation at baseline Stable for discharge. To return if any lightheaded/dizziness/cp/fever/worsening bleeding (2) Vaginal bleeding: Ongoing since January hCG negative Transvaginal ultrasound ordered and as above, REHAB DIRECTOR consultation, Aygestin taper w/ resolution in bleeding and needing outpatient f/u REHAB DIRECTOR as above (3) Headache, migraine: Continued sumatriptan as needed for migraines (4) Left malleolar fracture: Pain control with Tylenol Keep ankle in boot = in place on exam. f/u as prior scheduled (5) Acute blood loss anemia: appearing acute on chronic in nature, worse since January reported above prbc as above/zig zag stitcher consult, improvement in hgb on repeat. Given Venofer and PO iron supp at discharge w/ outpatient f/u but discussed possible need for IV venofer infusions w/ PCP if MCV remains low given iron studies while inpatient Plan discharge home after Venofer infusion, Aygestin taper with f/u REHAB DIRECTOR to r/o underlying cancer/hyperplasia Total Time Total Time Spent Total Time Spent (In Minutes): 45 Discharge Plan Discharge Items Patient Disposition: Home - Self-Care Reason For Visit: DIZZINESS Discharge Diagnosis: Symptomatic Anemia, Dysfunction Uterine BLeeding Condition on Discharge: Good Goals: You have been hospitalized for an acute medical problem. During your stay at [facility], we have made an effort to correct the problem that brought you to the hospital while keeping you as comfortable as possible. Medications were used to bring your condition under control and your discharge instructions will include directions for any medications you should take after leaving the hospital. Please make sure you see your Primary Care Provider as part of your follow up plan. Activity: As commented below Non-emergency contact: Primary Care Provider and Hydrometer Calibrator Call non-emergency contact if: you have any medication questions, your symptoms worsen, your pain is not controlled and you have a fever Follow-up/Referrals: Amy Leal MD, FACOG [Physician] - Ceferino Lares DO [Primary Care Provider] - 06/02/23 9:00 am Diet: Regular Addtl Attending Provider Instructions: You have been hospitalized for symptomatic anemia from uterine/vaginal bleeding. Hemoglobin levels were low and you received 2 units of blood. I checked iron studies and these were low. We also gave you IV venofer (iron) prior to discharge and you can continue daily vs every other day orally to boost your stores but if still low outpatient may require arrangements for further IV transfusions. MANAGER READING was consulted for bleeding and started you on Aygestin (norethindrone) to help stop this bleeding.. You should take 4 tabs a day for four days (you will have taken two tablets for today prior to discharge). Then decrease to three tabs a day for three days. Then decrease to two tabs a day for two days. Then decrease to one tab daily until gone. Please follow up with Dr Leal as outpatient for further eval once completed with this for withdrawal bleeding for evaluation with ultrasound and biopsy. Please follow up with primary care in the next 7-10 days to monitor your status after discharge from the hospital. Please return to the ER for any worsening bleeding, shortness of breath, chest pain, dizziness. It has been a pleasure being a part of the medical team providing for you while you have been in the hospital. Take care! Pending Studies at Discharge: No Stand-Alone Forms: My [facility] [employer], Smoking Cessation Medications and DC Order Prescriptions: New norethindrone acetate 5 mg Tablet 5 mg PO QID Qty: 29 0RF Rx Instructions: 4 tabs a day x 4 days, then 3 tablets daily x 3 days, then two tabs a day x two days and then one tab daily until gone ferrous sulfate 325 mg (65 mg iron) tablet 325 mg PO DAILY Qty: 30 0RF Continued sumatriptan succinate 50 mg tablet 50 mg PO UD PRN (Reason: migraine headache) Discharge Orders: Discharge Order (Routine); Ordered 05/21/23 Ordered By: Bing Forrest/Other Patient Handouts: Anemia, ED Uterine Fibroids Admission Data Admit Date/Time: 05/20/23 23:13 Attending Provider: Dorita Pappas Admit Provider: Luis Manuel Rivera Primary Care Provider: Ceferino Lares Other Providers: Amy Leal ; Dorita Pappas Other Interventions: Discharge Summary Assessment (RN) Last Done: 05/21/23 11:18 Supervising Physician Co-Signing Physician Notes The patient was not seen by me. The chart was reviewed. Case discussed with KAYLI Weeks. Agree with assessment and plan Coding Level of Care Code 98739 INP/OBS DISCH >30 MIN Diagnoses Symptomatic anemia D64.9 Vaginal bleeding N93.9 Headache, migraine G43.909 Left malleolar fracture S82.892A Acute blood loss anemia D62
[2023-05-21] MEDS ORDERED: IRON SUCROSE 300 MG in SODIUM CHLORIDE 0.9% 250 ML IV ONE (11:00)
== END 2023-05-21 13:21 | disposition home or self-care (01) | DRG 760 ==
LOC: ED 19:56 → 3E 23:13 → INTOOBSV 23:13 → 3E 05-21 01:25
DX: N83.201 Unspecified ovarian cyst, right side; X58.XXXD Exposure to other specified factors, subsequent encounter; N83.202 Unspecified ovarian cyst, left side; D62 Acute posthemorrhagic anemia; S82.892D Other fracture of left lower leg, subsequent encounter for closed fracture with routine healing; G43.909 Migraine, unspecified, not intractable, without status migrainosus; N95.1 Menopausal and female climacteric states; N92.0 Excessive and frequent menstruation with regular cycle; D25.9 Leiomyoma of uterus, unspecified; N92.4 Excessive bleeding in the premenopausal period